=== PATIENT | male | born 1980 | race Caucasian/White ===

== ENCOUNTER 2019-08-16 16:14 | Emergency (ER) | payer OTHER, SELFPAY ==
[2019-08-16 16:24] VITALS: BP 162/100; PULSE 95; RESP 16; TEMP 36.6; O2SAT 95
--- NOTE | 2019-08-16 16:39 | ED.DENTAL ---
HPI - Dental/Oral General Chief complaint: Dental/Oral Stated complaint: head pain/jaw pain History of Present Illness HPI Narrative: Patient presents to the emergency department with complaints of dental pain and a headache. He states this has been going on for 1.5 weeks. He denies fever, but does think he might have a sinus infection as well. He has no cough or sore throat. MD Complaint: tooth pain Teeth map: 1. widespread decay and gum swelling Onset (ago): week(s) Duration: constant Severity: moderate Exacerbating factors: nothing Context: history of dental caries Associated symptoms: gum swelling Treatment prior to arrival: oral analgesic Related Data Allergies Allergy/AdvReac Type Severity Reaction Status Date / Time No Known Allergies Allergy Unverified 03/10/14 15:56 Review of Systems Review of Systems: All systems reviewed & are unremarkable except as noted in HPI and below Constitutional: Constitutional: Denies chills, Reports fatigue, Denies fever(s) and Denies weakness ENT: Reports system reviewed and no additional complaints, except as documented Cardiovascular: Cardiovascular: Reports no additional cardiovascular complaints Respiratory: Respiratory: Reports no additional respiratory complaints Gastrointestinal: Gastrointestinal: Reports no additional gastrointestinal complaints Genitourinary: Genitourinary: Reports no additional male genitourinary complaints Musculoskeletal: Musculoskeletal: Reports no additional musculoskeletal complaints Integumentary/Breasts: Skin/Breast: Reports system reviewed and no additional complaints, except as docu Neurologic: Reports as per HPI and Reports headache(s) Psychiatric: Psychiatric: Reports no additional psychiatric complaints Endocrine: Endocrine: Reports no additional endocrine complaints Hematologic/Lymphatic: Hematologic/Lymphatic: Reports no additional hematologic/lymphatic complaints Allergic/Immunologic: Allergic/Immunologic: Reports no additional allergic/immunologic complaints PMF Past Medical History Medical History HTN (hypertension) Social History Social History Smoking status: Current every day smoker Alcohol intake: current Alcohol use details: 2-3 times a year Substance use: never Exam Const: General: no acute distress and alert Nutritional Appearance: well nourished and obese Orientation/consciousness: patient oriented x3 HENMT: Face and sinus: sinus tenderness (r max and left frontal) maxillary Teeth and gingiva: abnormal tooth and associated gingiva (widespread decay to r lower dentition with gum swelling) Eyes: Conjunctivae: conjunctivae normal Neck: Neck: normal visual inspection Chest: Chest palpation & inspection: normal inspection of the chest Resp: Effort & Inspection: normal respiratory effort Auscultation: clear to auscultation bilaterally Cardio: Rate: regular rate Rhythm: regular rhythm GI: Auscultation: normal bowel sounds Back/Spine/Pelvis: Back: no CVA tenderness Skin: General skin exam: normal color Neuro: General: patient oriented x3 Extrem: General: normal to inspection Psych: Mental Status: mental status grossly normal Affect: normal affect Thought content: Yes Normal thought content present Course Vital Signs Vital signs: Vital Signs Temperature 36.6 C 08/16/19 16:24 Pulse Rate 95 08/16/19 16:24 Respiratory Rate 16 08/16/19 16:24 Blood Pressure 162/100 H 08/16/19 16:24 Pulse Oximetry 95 08/16/19 16:24 Temperature 36.6 C 08/16/19 16:24 Pulse Rate 95 08/16/19 16:24 Respiratory Rate 16 08/16/19 16:24 Blood Pressure 162/100 H 08/16/19 16:24 Pulse Oximetry 95 08/16/19 16:24 Discharge Plan Discharge Clinical Impression: Dental caries Sinusitis Qualifiers: Sinusitis location: maxillary Chronicity: acute
[2019-08-16 17:09] VITALS: RESP 16
== END 2019-08-16 17:10 | disposition home or self-care (01) ==
PROVIDERS: Emergency Provider Emergency Medicine
DX: K02.9 Dental caries, unspecified (principal); J01.00 Acute maxillary sinusitis, unspecified; F17.200 Nicotine dependence, unspecified, uncomplicated
CPT/HCPCS: 99283

== ENCOUNTER 2020-06-26 22:02 | Emergency (ER) | payer OTHER, SELFPAY ==
[2020-06-26 22:10] VITALS: BP 169/95; PULSE 97; RESP 20; TEMP 37.1; O2SAT 97
[2020-06-26] MEDS: DEXAMETHASONE SOD PHOS INJ 4 MG/ML VIAL 10 MG IM (22:33)
[2020-06-26] MEDS: KETOROLAC (*BKC) 60 MG/2 ML VIAL IM (22:34)
[2020-06-26] MEDS: HYDROmorphone HCL INJ (*CRX) 2 MG/ML VIAL 1 MG IM (22:35)
[2020-06-26] MEDS: ONDANSETRON HCL ODT 4 MG TABLET PO (22:39)
[2020-06-26] MEDS: BACLOFEN 10 MG TABLET 20 MG PO (22:39)
--- NOTE | 2020-06-26 23:15 | ED.BACK ---
HPI - Back Pain/Injury General Chief Complaint: Back Pain/Injury Stated Complaint: back pain,loss of feeling in R leg Source: patient and family Mode of arrival: ambulatory Limitations: no limitations History of Present Illness HPI Narrative: Patient states he has had back pain since getting up from the Related Data Allergies Allergy/AdvReac Type Severity Reaction Status Date / Time No Known Allergies Allergy Unverified 03/10/14 15:56 Review of Systems Constitutional: Constitutional: Reports no additional constitutional complaints Eyes: Eyes: Reports no additional eye complaints ENT: Reports system reviewed and no additional complaints, except as documented Cardiovascular: Cardiovascular: Reports no additional cardiovascular complaints Respiratory: Respiratory: Reports no additional respiratory complaints Gastrointestinal: Gastrointestinal: Reports no additional gastrointestinal complaints Genitourinary: Genitourinary: Reports no additional male genitourinary complaints Musculoskeletal: Musculoskeletal: Reports no additional musculoskeletal complaints Integumentary/Breasts: Skin/Breast: Reports system reviewed and no additional complaints, except as docu Neurologic: Reports system reviewed and no additional complaints, except as documented Psychiatric: Psychiatric: Reports no additional psychiatric complaints Endocrine: Endocrine: Reports no additional endocrine complaints Hematologic/Lymphatic: Hematologic/Lymphatic: Reports no additional hematologic/lymphatic complaints Allergic/Immunologic: Allergic/Immunologic: Reports no additional allergic/immunologic complaints [facility] Past Medical History Medical History HTN (hypertension) Social History Social History Smoking status: Current every day smoker Alcohol intake: current Substance use: never Exam Const: Orientation/consciousness: patient oriented x3 HENMT: Ears: external ears normal and TM's normal bilaterally Teeth and gingiva: 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) Throat: posterior oropharynx normal Eyes: Conjunctivae: conjunctivae normal Neck: Neck: normal visual inspection Chest: Chest palpation & inspection: normal inspection of the chest Resp: Effort & Inspection: normal respiratory effort Cardio: Rate: regular rate Rhythm: regular rhythm : Testes: Testes normal Back/Spine/Pelvis: Other: Mild tenderness to LS spine Skin: General skin exam: normal color Neuro: General: patient oriented x3 and moves all extremities Extrem: General: normal to inspection Psych: Mental Status: mental status grossly normal Thought content: Yes Normal thought content present Course Course Emergency Course: This gentleman was given baclofen 20mg po, zofran 4mg odt, ketorolac 60mg IM, dilaudid 1mg IM, and dexamethasone 10mg IM. After a few minutes he was feeling better. He was discharged with scripts for baclofen 20mg Po tid prn, and dexamethasone 12 mg raisa for the next 3 days. Vital Signs Vital signs: Vital Signs Temperature 37.1 C 06/26/20 22:10 Pulse Rate 97 06/26/20 22:10 Respiratory Rate 20 06/26/20 22:10 Blood Pressure 169/95 H 06/26/20 22:10 Pulse Oximetry 97 06/26/20 22:10 Temperature 36.9 C 06/26/20 23:27 Pulse Rate 85 06/26/20 23:27 Respiratory Rate 20 06/26/20 23:27 Blood Pressure 150/80 H 06/26/20 23:27 Pulse Oximetry 97 06/26/20 23:27 MDM - Back Pain/Injury Differential Diagnosis Differential diagnosis: Likely lumbar radiculopathy, sciatica and strain of lumbar region Medical Records Attestation: I reviewed the patient's medical records. Lab Data Attestation: I reviewed the patient's lab results. Discharge Plan Discharge Clinical Impression: Back pain Patient Disposition: Home, Self-Care Condition: Stable Instructions: Antibiotic Form Additiona
[2020-06-26 23:27] VITALS: BP 150/80; PULSE 85; RESP 20; TEMP 36.9; O2SAT 97
== END 2020-06-26 23:35 | disposition home or self-care (01) ==
PROVIDERS: Emergency Provider Emergency Medicine
DX: M54.9 Dorsalgia, unspecified (principal)
CPT/HCPCS: 96372; 99283; 99284; A9270; J1100; J1170; J1885